=== PATIENT | male | born 1970 | race Hispanic/Latino ===

== ENCOUNTER 2017-08-16 08:04 | Day surgery (SDC) | payer OTHER ==
[2017-08-16] MEDS ORDERED: Midazolam 2 MG/2 ML VIAL ONE (10:32)
[2017-08-16] MEDS ORDERED: Propofol 10 mg/ml Inj (20 ML) ONE (10:32)
[2017-08-16 10:52] VITALS: TEMP 97.5
[2017-08-16 12:34] VITALS: BP 113/74; PULSE 59; RESP 14; O2SAT 99
== END 2017-08-16 11:56 | disposition home or self-care (01) ==
LOC: C.ENDO 08:04
PROVIDERS: ATTEND Internal Medicine
DX: K29.50 Unspecified chronic gastritis without bleeding (principal); B96.81 Helicobacter pylori [H. pylori] as the cause of diseases classified elsewhere; K21.9 Gastro-esophageal reflux disease without esophagitis; R10.9 Unspecified abdominal pain; R14.0 Abdominal distension (gaseous)
CPT/HCPCS: 43239; 88305; J2001; J2250; J2704